=== PATIENT | female | born 1960 | race Caucasian/White ===

== ENCOUNTER → 2025-07-01 11:58 | Outpatient (CLI) | payer OTHER, SELFPAY | LOC: RESP 11:59 | PROVIDERS: PCP Nurse Practitioner Acute Care; Referring Provider Internal Medicine Pulmonary Disease; Visit Provider Internal Medicine Pulmonary Disease | DX: J44.89 Other specified chronic obstructive pulmonary disease (principal); J43.8 Other emphysema; Z87.891 Personal history of nicotine dependence; R94.2 Abnormal results of pulmonary function studies | CPT/HCPCS: 94060; 94726; 94729 ==

== ENCOUNTER → 2025-07-01 12:00 | Outpatient (CLI) | payer OTHER, SELFPAY ==
--- NOTE | 2025-07-01 12:50 | DI.CT.S_ITS ---
PROCEDURE: CT CHEST WO CON INDICATIONS: emphysema TECHNIQUE: Noncontrast 5 mm thick sections acquired from the pulmonary apices to the posterior costophrenic angles. 1 mm lung window, 5 mm thick coronal and sagittal and 7 mm axial MIP reformats were then acquired. For radiation dose reduction, the following was used: automated exposure control, adjustment of mA and/or kV according to patient size. COMPARISON: None. FINDINGS: Image quality: Diagnostic. Lower Neck: No enlarged lymph nodes. Thyroid: No thyroid nodules which require sonographic follow up, per consensus guidelines. Axillae: No enlarged lymph nodes. Chest Wall: Unremarkable. Bones: Visualized osseous structures appear intact without acute fracture or focal destructive lesion. No acute compression fractures of the imaged spine. Lungs and Pleura: No pneumothorax or pleural effusions. Mild upper lobe predominant pulmonary emphysematous changes. No septal thickening or nodularity. No suspicious pulmonary nodules requiring follow-up. Visualized airways appear patent. Heart: Heart size is normal. Coronary atherosclerotic vascular calcifications are noted. No pericardial effusion. Thoracic Vessels: The aorta and pulmonary arteries demonstrate normal size. Mediastinum and Belkys: No enlarged lymph nodes. Esophagus: No wall thickening. No hiatal hernia. Upper Abdomen: Visualized upper abdomen solid organs and bowel loops appear normal. IMPRESSION: CT chest without acute cardiopulmonary abnormalities. Mild upper lobe predominant pulmonary emphysematous changes. No suspicious pulmonary nodules. Moderate coronary atherosclerotic calcifications. Correlate with risk factors and advise counseling. Dictated by: Avery Villagomez M.D. on 07/02/2025 at 15:21 Approved by: Avery Villagomez M.D. on 07/02/2025 at 15:47
== END ==
LOC: CT 12:00
PROVIDERS: PCP Nurse Practitioner Acute Care; Referring Provider Internal Medicine Pulmonary Disease; Visit Provider Internal Medicine Pulmonary Disease
DX: J43.8 Other emphysema (principal); J44.89 Other specified chronic obstructive pulmonary disease; R94.2 Abnormal results of pulmonary function studies; Z87.891 Personal history of nicotine dependence
CPT/HCPCS: 71250; 94060; 94726; 94729